=== PATIENT | male | born 1945 | race Caucasian/White ===

== ENCOUNTER 2021-04-21 15:03 | Emergency (ER) | payer MEDICARE, BC ==
[~2021-04-21] VITALS: Ht 180.3 cm; Wt 84.8 kg
[2021-04-21 15:51] LABS: BASOPHILS % (AUTO) 0.5 % (0.0-2.0); EOSINOPHILS % (AUTO) 2.7 % (0.0-6.0); HEMATOCRIT 42 % (39-51); HEMOGLOBIN 14.3 g/dL (13.5-17.5); LYMPHOCYTES # (AUTO) 1.5 K/uL (0.8-4.8); LYMPHOCYTES % (AUTO) 30.8 % (20.0-44.0); MEAN CORPUSCULAR HGB CONC 34 g/dl (31.0-36.0); MEAN CORPUSCULAR VOLUME 98 fL (80-96); MONOCYTES # (AUTO) 0.5 K/uL (0.1-1.30); MONOCYTES % (AUTO) 10.7 % (2.0-12.0); NEUTROPHILS # (AUTO) 2.7 K/uL (1.8-8.9); NEUTROPHILS % (AUTO) 55.3 % (43.0-81.0); PLATELET COUNT (AUTO) 276 K/uL (150-450); RED BLOOD CELL COUNT(AUTO) 4.31 MIL/uL (4.5-6.0)
--- NOTE | 2021-04-21 16:03 | NUR ---
CALLED DR. TOMMY NORMAN [phone] OPTION 1 FOR QC ANALYST [facility] [place].
[2021-04-21 16:04] LABS: CALCIUM, SERUM 8.8 mg/dL (8.5-10.1)
--- NOTE | 2021-04-21 16:55 | NUR ---
SECOND CALL TO DR. TOMMY NORMAN [phone] OPTION 1 FOR TACTICAL INTELLIGENCE OFFICER [facility] [place].
[2021-04-21] MEDS ORDERED: APIXABAN 5 MG TABLET PO SCH (17:00)
--- NOTE | 2021-04-21 17:05 | NUR ---
PATIENT C/O HEADACHE, DR. ULLOA ORDERED A CT HEAD.
--- NOTE | 2021-04-21 17:42 | NUR ---
CALLED DANIEL FOR READ.
[2021-04-21] MEDS ORDERED: APIXABAN 5 MG TABLET ONE (18:25)
--- NOTE | 2021-04-21 18:26 | NUR ---
PER DR ULLOA OK TO GIVE ELIQUIS 10 MG PO NOW
[2021-04-21] MEDS ORDERED: APIX5TAB4 PO (18:38)
[2021-04-21 18:45] VITALS: BP 139/87
--- NOTE | 2021-04-21 18:45 | NUR ---
PATIENT A/OX4, BREATHING EVEN AND UNLABORED, NO SOB NOTED. AMBULATORY WITH STEADY GAIT. Patient discharged to home in stable condition. Written and verbal after care instructions given. Patient verbalizes understanding of instruction.
== END 2021-04-21 18:45 | disposition home or self-care (01) ==
LOC: ER 15:06
DX: I82.402 Acute embolism and thrombosis of unspecified deep veins of left lower extremity (principal); I10 Essential (primary) hypertension; R51.9 Headache, unspecified; F17.200 Nicotine dependence, unspecified, uncomplicated; Z98.890 Other specified postprocedural states; Z90.89 Acquired absence of other organs
CPT/HCPCS: 36415; 70450-TC; 80048-TC; 85025-TC; 85610-TC; 85730-TC